=== PATIENT | male | born 1975 | race Caucasian/White ===

== ENCOUNTER 2022-06-02 16:46 | Emergency (ER) | payer OTHER ==
[~2022-06-02] VITALS: Ht 185.4 cm; Wt 102.5 kg
[2022-06-02] MEDS ORDERED: Bactrim Ds Tab1 EACH PO (19:24)
== END 2022-06-02 19:36 | disposition home or self-care (01) ==
LOC: ER 16:46
DX: L03.116 Cellulitis of left lower limb (principal); L03.114 Cellulitis of left upper limb; J34.0 Abscess, furuncle and carbuncle of nose; Z88.8 Allergy status to other drugs, medicaments and biological substances
CPT/HCPCS: A9270